=== PATIENT | male | born 1975 | race Caucasian/White ===

== ENCOUNTER 2018-12-16 19:59 | Emergency (ER) | payer SELFPAY ==
[2018-12-16 20:03] VITALS: BP 145/90; PULSE 94; RESP 18; TEMP 36.7; O2SAT 97
--- NOTE | 2018-12-16 20:36 | ED.EYEPROB ---
HPI - Eye Problem <Zoila Castro PA-C - Last Filed: 12/16/18 22:08> General Chief complaint: Eye Problems Stated complaint: sawdust or something is in his left eye Time Seen by Provider: 12/16/18 20:23 Source: patient Mode of arrival: ambulatory Limitations: no limitations History of Present Illness HPI Narrative: This 43-year-old male states that he was working in the shop and cutting wood he felt like he got saw dust in his left eye. He states there were not any big particles of wood or any foreign body that he thinks he could have gotten into his eye. He states that he flushed the eye for about 5 min, but still painful to move the eye with some foreign body sensation. He states not painful he sits with the eye closed in 1 position. He thinks his vision is okay but a little bit foggy. He denies any other complaints or new symptoms today Related Data Previous Rx's Medication Instructions Recorded erythromycin 0.5 inch EYE-LEFT Q4HRWA 5 Days #1 12/16/18 gram Allergies Allergy/AdvReac Type Severity Reaction Status Date / Time venlafaxine [From EFFEXOR] Allergy Mild NASUEA Unverified 01/04/18 12:16 Review of Systems <Zoila Castro PA-C - Last Filed: 12/16/18 22:08> Review of Systems ROS Unobtainable: All systems reviewed & are unremarkable except as noted in HPI and below PFSH <Zoila Castro PA-C - Last Filed: 12/16/18 22:08> Medical History No pertinent family history (Chronic) PTSD (post-traumatic stress disorder) (Chronic) Seasonal allergies (Chronic) Surgical History No history of previous surgery (Resolved) Social History Smoking Status: Never smoker Social History Smoking Status: Never smoker Exam <KRISTYN Barajas Last Filed: 12/16/18 22:08> Narrative Exam Narrative: GENERAL APPEARANCE: Patient sitting comfortably, in no distress. HEENT: PERRL, EOMI, conjunctiva and sclera injected. No foreign body visible including with sweep under the lids. With fluorescin stain, there are small abrasions and the cornea appears rough. There is also a rectangular shape area of increased uptake in the superior part of the iris. Vision: 20/15 OD, 20/50 OS, 20/20 OU LUNGS: Clear to auscultation bilaterally. HEART: Rate and rhythm regular without murmur, normal S1 and S2, no S3 or S4. Initial Vital Signs Initial Vital Signs: Vital Signs Temperature 98.1 F 12/16/18 20:03 Pulse Rate 94 H 12/16/18 20:03 Respiratory Rate 18 12/16/18 20:03 Blood Pressure 145/90 H 12/16/18 20:03 Pulse Oximetry 97 12/16/18 20:03 <Jimmy Spear DO - Last Filed: 12/16/18 22:21> Initial Vital Signs Initial Vital Signs: Vital Signs Temperature 98.1 F 12/16/18 20:03 Pulse Rate 94 H 12/16/18 20:03 Respiratory Rate 18 12/16/18 20:03 Blood Pressure 145/90 H 12/16/18 20:03 Pulse Oximetry 97 12/16/18 20:03 Course <Zoila Castro PA-C - Last Filed: 12/16/18 22:08> Additional Information: Reviewed findings with Dr. Spear who agrees with treatment plan. Patient agrees to return to ED if acutely worse over the weekend and to see opth on Tuesday if not improved by then Orders Ordered: Discontinued Medications Artificial Tears (Refresh Lacri-Lube Ointment) 1 applic EYE-LEFT BEDTIME PRN PRN Reason: Dry Eye(s) Last Admin: 12/16/18 21:19 Dose: 1 applic Erythromycin (Erythromycin Ophth Oint) 1 applic EYE-LEFT NOW ONE Stop: 12/16/18 21:04 Last Admin: 12/16/18 21:19 Dose: 1 applic Vital Signs - 8 hr 12/16/18 20:03 12/16/18 21:23 Temperature 98.1 F 98.5 F Pulse Rate 94 H 90 Respiratory Rate 18 18 Blood Pressure 145/90 H 139/82 Pulse Oximetry 97 98 <Jimmy Spear DO - Last Filed: 12/16/18 22:21> Orders Ordered: Discontinued Medications Artificial Tears (Refresh Lacri-Lube Ointment) 1 applic EYE-LEFT BEDTIME PRN PRN Reason: Dry Eye(s) Last Admin: 12/16/18 21:19 Dose: 1 applic Erythromycin (Erythromycin Ophth Oint) 1 applic EYE-LEFT NOW ONE Stop: 12/16/18 21:04 Last Admin: 12/16/18 21:19 Dose: 1 applic Vital Signs - 8 hr 12/16/18 20:03 12/16/18 21:23 Temperature 98.1 F 98.5 F Pulse Rate 94 H 90 Respiratory Rate 18 18 Blood Pressure 145/90 H 139/82 Pulse Oximetry 97 98 Discharge Plan Departure Patient Disposition: Home Clinical Impression: Corneal abrasion Qualifiers: Encounter type: initial encounter Laterality: left Qualified Code(s): S05.02XA - Injury of conjunctiva and corneal abrasion without foreign body, left eye, initial encounter Discharge Date/Time: 12/16/18 21:23 Interventions: ED Discharge Assessment Last Done: 12/16/18 21:23 Instructions: DI for Corneal Abrasion Activity Restrictions/Additional Instructions: Please return to the ED as we talked about if you have acutely worsening symptoms over the weekend, i.e. worsening vision or pain. Please use the erythromycin antibiotic eye ointment when you get home tonight and every 4 hr while you are awake tomorrow, then you can change to 4 times daily for the next 4 days. Use over the counter Aleve or Ibuprofen if needed and you can also add tylenol as you wish. I have printed a prescription for you to fill on Tuesday if the ointment we gave you does not last. You can also use the artificial tears ointment that we gave you as needed as this may help with scratchiness and pain (try to apply this a while before or after using antibiotic). Use a warm compress on the area to help with drainage and pain. This should be improved by Tuesday and if not you should see an eye doctor (I have given you the name of our biomedical engineering supervisor on-call here for [facility] and you can call their if needed and let them know you were seen here, or call Dr. Slaughter for a referral if you are not better by then) Prescriptions: New erythromycin 5 mg/gram (0.5 %) ointment 0.5 inch EYE-LEFT Q4HRWA 5 Days Qty: 1 RF: 0 Referrals: Robin Gibbs MD [Physician] - Kenia Slaughter MD [Primary Care Provider] - <Jimmy Spear DO - Last Filed: 12/16/18 22:21> Cosign ED Attending Cosignature Attestation: I was available for consultation during this patient's emergency department encounter
[2018-12-16] MEDS: ERYTHROMYCIN OPHTH 1 GM OINT 1 APPLIC EYE-LEFT (21:19)
[2018-12-16] MEDS: MINERAL OIL/PETROL OPHTH OINT 3.5 GM 1 APPLIC EYE-LEFT (21:19)
[2018-12-16 21:23] VITALS: BP 139/82; PULSE 90; RESP 18; TEMP 36.9; O2SAT 98
== END 2018-12-16 21:23 | disposition home or self-care (01) ==
PROVIDERS: Emergency Provider Internal Medicine; PCP Internal Medicine Geriatric Medicine
DX: S05.02XA Injury of conjunctiva and corneal abrasion without foreign body, left eye, initial encounter (principal)
CPT/HCPCS: 99283